=== PATIENT | female | born 1985 | race Caucasian/White ===

== ENCOUNTER 2019-01-26 21:02 | Inpatient (IN) | payer OTHER ==
[~2019-01-26] VITALS: Ht 158 cm; Wt 71.2 kg
[2019-01-26] MEDS ORDERED: RINGERS SOLUTION,LACTATED 1,000 ML IV PRN (21:06)
[2019-01-26] MEDS ORDERED: METOCLOPRAMIDE HCL 5 MG/ML 2 ML VIAL IVP PRN (21:15)
[2019-01-26] MEDS ORDERED: CITRIC ACID/SODIUM CITRATE 30 ML SOLUTION UDCUP PO PRN (21:15)
[2019-01-26] MEDS ORDERED: OXYGEN THERAPY IH SCH (21:15)
[2019-01-26 21:32] LABS: BASOPHILS % (AUTO) 0.6 % (0.0-2.0); HEMATOCRIT 38.6 % (36-46); LYMPHOCYTES # (AUTO) 2.7 K/uL (1.0-4.8); LYMPHOCYTES % (AUTO) 32.8 % (22.0-44.0); MEAN CORPUSCULAR HEMOGLOBIN 29.5 pg (26.0-34.0); MEAN CORPUSCULAR HGB CONC 33.7 G/dL (31.0-37.0); MEAN CORPUSCULAR VOLUME 88 fL (80-100); MONOCYTES # (AUTO) 0.6 K/uL (0.1-1.0); MONOCYTES % (AUTO) 7.2 % (2.0-9.0); NEUTROPHILS # (AUTO) 4.7 K/uL (1.8-7.7); NEUTROPHILS % (AUTO) 57.4 % (40.0-70.0); PLATELET COUNT (AUTO) 213 K/uL (150-450); RED CELL DISTRIBUTION WIDTH 14.4 % (11.5-14.5)
[2019-01-26] MEDS ORDERED: PREN1TAB80 PO (22:01)
[2019-01-26] MEDS: RINGERS SOLUTION,LACTATED 1,000 ML IV SCH (22:24)
[2019-01-26] MEDS ORDERED: AMPICILLIN SODIUM 2 GM/NS 100 ML IV ONE (22:30)
[2019-01-26] MEDS ORDERED: MISOPROSTOL 25 MCG TABLET VG ONE (22:30)
[2019-01-26 22:48] VITALS: BP 124/71
[2019-01-26] MEDS: FentaNYL CITRATE-PF 100 MCG/2 ML VIAL IVP PRN ×2 (23:35→23:40)
[2019-01-27] MEDS ORDERED: BUTORPHANOL TARTRATE 2 MG/ML VIAL IVP PRN
[2019-01-27] MEDS ORDERED: MISOPROSTOL 50 MCG TABLET VG SCH (02:30)
[2019-01-27] MEDS: AMPICILLIN SODIUM 1 GM/NS 50 ML IV SCH ×3 (02:31→11:21)
[2019-01-27] MEDS ORDERED: ROPIVACAINE HCL/PF 0.2% 100 ML ED ONE (03:31)
[2019-01-27] MEDS ORDERED: DiphenhydrAMINE HCL 50 MG/ML VIAL IVP PRN ×2 (04:00→16:00)
[2019-01-27] MEDS ORDERED: ROPIVACAINE HCL/PF 0.2% 100 ML ED PRN (04:00)
[2019-01-27] MEDS ORDERED: ONDANSETRON HCL 4 MG/2 ML VIAL IVP PRN ×2 (04:00→16:00)
[2019-01-27] MEDS ORDERED: NALBUPHINE HCL 10 MG/ML VIAL IVP PRN (04:00)
[2019-01-27] MEDS ORDERED: OXYTOCIN 30 UNITS/LACT RINGERS 500 ML IV PRN (05:15)
[2019-01-27] MEDS: RINGERS SOLUTION,LACTATED 1,000 ML IV SCH (09:57)
[2019-01-27] MEDS ORDERED: 0.9% SODIUM CHLORIDE 10 ML VIAL IVP ONE (12:00)
[2019-01-27] MEDS ORDERED: FentaNYL CITRATE-PF 100 MCG/2 ML VIAL IVP ONE (12:00)
[2019-01-27] MEDS ORDERED: KETOROLAC TROMETHAMINE 60 MG/2 ML VIAL IM ONE (12:00)
[2019-01-27] MEDS ORDERED: ONDANSETRON HCL 4 MG/2 ML VIAL IVP ONE (12:00)
[2019-01-27] MEDS ORDERED: EPHEDrine SULFATE 50 MG/ML VIAL IM ONE (12:00)
[2019-01-27] MEDS ORDERED: MORPHINE SULFATE/PF 0.5 MG/ML 10 ML AMP IVP ONE (12:00)
[2019-01-27] MEDS ORDERED: OXYTOCIN 10 UNITS/ML VIAL IM ONE (12:00)
[2019-01-27] MEDS ORDERED: LIDOCAINE 2%/EPI 1:200,000/PF 20 ML VIAL ONE (15:01)
[2019-01-27] MEDS ORDERED: ACETAMINOPHEN 1000 MG/ISO-OSM 100 ML IV ONE (15:01)
[2019-01-27] MEDS ORDERED: RINGERS SOLUTION,LACTATED 1,000 ML IV ONE (15:25)
[2019-01-27] MEDS ORDERED: GUM MASTIC/STORAX/MSAL/ALCOHOL LIQUID 0.67 ML VIAL TP ONE (15:44)
[2019-01-27] MEDS ORDERED: HYDROmorphone 2 MG/ML SYRINGE IVP PRN ×2 (16:00)
[2019-01-27] MEDS ORDERED: MEPERIDINE-PF 25 MG/ML VIAL IVP PRN (16:00)
[2019-01-27] MEDS ORDERED: SENNA/DOCUSATE SODIUM 8.6-50 MG TABLET PO PRN (16:00)
[2019-01-27] MEDS ORDERED: OxyCODONE HCL/ACETAMINOPHEN 5-325 MG TABLET PO PRN (16:00)
[2019-01-27] MEDS ORDERED: OxyCODONE HCL/ACETAMINOPHEN 10-325 MG TABLET PO PRN (16:00)
[2019-01-27] MEDS ORDERED: FentaNYL CITRATE-PF 100 MCG/2 ML VIAL IVP PRN ×2 (16:00)
[2019-01-27] MEDS ORDERED: LANOLIN 7 GM OINTMENT TP PRN (16:00)
[2019-01-27] MEDS ORDERED: NALOXONE HCL 0.4 MG/ML VIAL IVP PRN (16:00)
[2019-01-27] MEDS ORDERED: METHYLERGONOVINE MALEATE 0.2 MG TABLET PO PRN (16:00)
[2019-01-27] MEDS: ACETAMINOPHEN 500 MG TABLET PO SCH (21:22)
[2019-01-27] MEDS: DEXTROSE 5%-LACTATED RINGERS 1,000 ML IV SCH (22:03)
[2019-01-27] MEDS: CeFAZolin 2 GM/DEXTROSE 50 ML IV SCH (23:38)
[2019-01-28] MEDS: KETOROLAC TROMETHAMINE 15 MG/ML VIAL IVP SCH ×2 (01:12→09:45)
[2019-01-28] MEDS: ACETAMINOPHEN 500 MG TABLET PO SCH (03:18)
[2019-01-28] MEDS: DEXTROSE 5%-LACTATED RINGERS 1,000 ML IV SCH (06:06)
[2019-01-28 06:33] LABS: BASOPHILS % (AUTO) 0.2 % (0.0-2.0); EOSINOPHILS % (AUTO) 0.8 % (1.0-6.0); HEMATOCRIT 31.4 % (36-46); HEMOGLOBIN 10.5 g/dL (12.0-16.0); LYMPHOCYTES % (AUTO) 14.5 % (22.0-44.0); MEAN CORPUSCULAR HEMOGLOBIN 29.6 pg (26.0-34.0); MEAN CORPUSCULAR HGB CONC 33.3 G/dL (31.0-37.0); MEAN CORPUSCULAR VOLUME 89 fL (80-100); MONOCYTES # (AUTO) 0.9 K/uL (0.1-1.0); MONOCYTES % (AUTO) 6.4 % (2.0-9.0); NEUTROPHILS # (AUTO) 10.8 K/uL (1.8-7.7); NEUTROPHILS % (AUTO) 78.1 % (40.0-70.0); PLATELET COUNT (AUTO)-OB 144 K/uL (150-450); RED BLOOD CELL COUNT(AUTO) 3.53 MIL/uL (4.00-5.20); RED CELL DISTRIBUTION WIDTH 14.4 % (11.5-14.5)
[2019-01-28] MEDS: CeFAZolin 2 GM/DEXTROSE 50 ML IV SCH (09:46)
[2019-01-28] MEDS: IBUPROFEN 800 MG TABLET PO PRN (16:34)
[2019-01-28] MEDS: OxyCODONE HCL/ACETAMINOPHEN 5-325 MG TABLET PO PRN (16:34)
[2019-01-28] MEDS: MAGNESIUM HYDROXIDE SUSPENSION 30 ML UDCUP PO PRN (21:17)
[2019-01-29] MEDS: OxyCODONE HCL/ACETAMINOPHEN 5-325 MG TABLET PO PRN (06:26)
[2019-01-29] MEDS: IBUPROFEN 800 MG TABLET PO PRN ×3 (06:27→18:27)
[2019-01-29] MEDS: MAGNESIUM HYDROXIDE SUSPENSION 30 ML UDCUP PO PRN (12:30)
[2019-01-30] MEDS: IBUPROFEN 800 MG TABLET PO PRN (10:14)
[2019-01-30] MEDS ORDERED: DSS100 PO (11:55)
[2019-01-30] MEDS ORDERED: FERR-89 PO (11:55)
[2019-01-30] MEDS ORDERED: HYDR-4455 PO (11:57)
== END 2019-01-30 13:00 | disposition home or self-care (01) | DRG 788 ==
LOC: OBSVTOIN 21:02 → 4S 21:02
PROVIDERS: ADMIT Specialist; ATTEND Specialist
PROC: 10D00Z1 Extraction of Products of Conception, Low, Open Approach (ICD-10-PCS; principal; 2019-01-27)
DX: O62.0 Primary inadequate contractions (principal); O48.0 Post-term pregnancy; O69.82X0 Labor and delivery complicated by other cord entanglement, without compression, not applicable or unspecified; O77.0 Labor and delivery complicated by meconium in amniotic fluid; O99.824 Streptococcus B carrier state complicating childbirth; Z3A.41 41 weeks gestation of pregnancy; Z37.0 Single live birth
CPT/HCPCS: 86850; 86900; 86901; J0131; J0290; J0595; J0690; J1885; J2274; J2405; J2590; J2765; J2795; J3010; J3490; J7120